=== PATIENT | female | born 1980 | race Caucasian/White ===

== ENCOUNTER 2019-02-09 11:24 | Observation (INO) ==
[2019-02-09] MEDS ORDERED: Naloxone 0.4 MG/ML INJ IVP ONE (11:30)
[2019-02-09] MEDS ORDERED: 0.9 % Sodium Chloride 1,000 ML IVC ONE (11:32)
--- NOTE | 2019-02-09 11:40 | Emergency Department Note ---
Disposition Clinical Impression: Polysubstance abuse Altered mental status Qualifiers: Altered mental status type: unspecified Qualified Code(s): R41.82 - Altered mental status, unspecified Disposition: Admitted As Inpatient Condition: Fair Referrals: NONE,PCP [Primary Care Provider] - Forms: ED Satisfaction Letter Time of Disposition: 14:56 Altered Mental Status HPI - General Chief Complaint: ED Altered Mental Status Stated Complaint: unresponsive Time Seen by Provider: 02/09/19 11:30 Source: EMS Mode of arrival: EMS Limitations: altered mental status Nursing Notes Reviewed: Yes Vital Signs Reviewed: Yes - History of Present Illness HPI Narrative: Patient is a 38-year-old female with unknown past medical history. Presented today via EMS due to being found unresponsive in a field. EMS was called by a neighbor who stated that they found her in the field. EMS states that she was unresponsive, breathing 1-2 times a minute. They give the patient 2 doses of intramuscular Narcan and one intranasal. The noted an improvement in respirations but not in mental status. They state that she will answer any questions for them, appears confused. No other history provided. Glucose was in the 200s per EMS. Patient herself is altered, will not answer any review of system questions. Will not answer any other questions or following any commands. When trying to look into the patient's eyes, I asked if she could open her eyes for many and she was squeezing them tightly and yelled "fuck off." She would not follow any other commands for me. - Related Data Home Medications Medication Instructions Recorded Confirmed Oxycodone HCl/Acetaminophen 1 each PO Q4H PRN 01/13/19 01/13/19 [Percocet 5-325 mg Tablet] Previous Rx's Medication Instructions Recorded Naproxen [Naprosyn] 500 mg PO BID #10 tablet 01/13/19 Allergies Allergy/AdvReac Type Severity Reaction Status Date / Time nalbuphine [From Nubain] Allergy See Verified 01/18/17 20:29 Comments Limitations: ROS unobtainable due to patients medical condition Past Medical History - Past Medical History Medical history: Reports: no medical history (unknown) Surgical history: Reports: non-contributory Psychiatric history: Reports: anxiety 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 - Social History Smoking Status: Former smoker Smokeless Tobacco Status: No Alcohol use: Reports: none Drug use: Reports: opiates, marijuana, methamphetamine, IV Drug Use Physical Exam - General Limitations: altered mental status General appearance: other (altered mental status, GCS 12, listless) - Head Head exam: atraumatic, normocephalic, normal inspection, other (no evidence of any basilar skull fracture signs - negative rowell and raccoon sign; abrasion of the forehead with no active bleeding or sign of infeciton) - Eye Eye exam: Present: normal appearance, PERRL, EOMI - ENT ENT exam: normal exam, normal oropharynx, mucous membranes moist - Neck Neck exam: Present: normal inspection, full ROM, trachea midline. Absent: tenderness - Chest Chest inspection: Present: normal inspection, symmetric chest wall rise - Respiratory Respiratory exam: Present: normal lung sounds bilaterally. Absent: respiratory distress, wheezes, stridor, accessory muscle use - Cardiovascular Cardiovascular exam: Present: normal rhythm, tachycardia, normal heart sounds - Abdominal Exam Abdominal exam: Present: soft, Non-Tender, other (bedside FAST negative). Absent: tenderness, distention, guarding, rebound, rigidity - Extremities Exam Extremities exam: Present: full ROM, other (scabbing of the left anterior knee with sutures in place; no bleeding or signs of infection). Absent: tenderness, pedal edema - Back Exam Back exam: Present: normal inspection, full ROM. Absent: tenderness, vertebral tenderness - Neurological Exam Neurological exam: Present: other (listless, will not follow commands) - Expanded Neurological Exam Coma Scale Eye Opening: To Voice Coma Scale Motor Response: Localizes to Pain Coma Scale Verbal Response: Confused Coma Scale Total: 12 - Skin Skin exam: Present: warm, dry, intact, normal color Course Course Narrative: Patient initially had a pulse ox reading of 85%. However, this was not a good waveform. She was placed on a nonrebreather. Weight. She has a GCS of 12. ATLS protocol was performed in case this was an unknown trauma. Airway was intact, equal bilateral breath sounds, distal pulses intact. No obvious injury or crepitus to the chest, no tenderness to palpation or obvious lesions of the abdomen or pelvis. Patient was disrobed. 2 plastic baggies were found in the underwear containing a white substance concerning for illicit drugs. Security was called and this was given to security. Bedside FAST exam was negative. No obvious step-offs or deformities of the back. Patient was placed in a c-collar on presentation. Currently concern for likely drug overdose. However, still need to assess for other etiologies of altered mental status. CT the head, cervical spine performed along with chest x-ray and pelvis x-ray. We will also obtain basic blood work, troponin, TSH, VBG, urine drug screen, urinalysis, ethanol level. Will start 1L NS bolus. Gave an additional 2mg Narcan IV with little to no response. 12:44 patient has been removed to a regular room. Her chest x-ray negative. Pelvis x-ray negative for any acute processes. CT the head and cervical spine is pending. So far, mild anemia but no other major concerning findings on labs. Currently pending a carboxyhemoglobin, VBG, lactic acid, urinalysis and urine drug screen. Patient was reassessed currently and she still remains a GCS of 12. She is able to be woken with a sternal rub and will curse but will not answer any other questions or follow any other commands. She is now on room air and satting 90%. Blood pressure remained stable at this time was systolic in the low 100s. 12:46 CT head and cervical spine negative. Currently pending the above stated labs. 14:29 Labs back, there was a delay due to the patient being a hard stick for external labs. VBG shows a very mild acidosis. Also very mild elevation in CO level. The patient is a smoker, this would explain the very mild elevation in carboxyhemoglobin. Not concerning for any carbon monoxide poisoning at this time. Urine drug screen is pending. Urinalysis negative for UTI. We will proceed with admission at this time. No change in her physical exam at this time. Chest X-Ray 02/09/19 11:30 IMPRESSION: No acute process. D/ / Praveen Aaron MD / Praveen Aaron MD Interpreting Provider: Praveen Aaron MD Cervical Spine CT 02/09/19 11:31 IMPRESSION: No acute abnormality of the cervical spine. No acute intracranial abnormality. D/ / Luiz Goncalves MD / Luiz Goncalves MD Interpreting Provider: Luiz Goncalves MD Head CT 02/09/19 11:31 IMPRESSION: No acute abnormality of the cervical spine. No acute intracranial abnormality. D/ / Luiz Goncalves MD / Luiz Goncalves MD Interpreting Provider: Luiz Goncalves MD Pelvis X-Ray 02/09/19 11:32 IMPRESSION: Mild degenerative changes, as above. D/ / Arslan Dial MD / Arslan Dial MD Interpreting Provider: Arslan Dial MD Chest X-Ray 02/09/19 11:30 IMPRESSION: No acute process. D/ / Praveen Aaron MD / Praveen Aaron MD Interpreting Provider: Praveen Aaron MD Pelvis X-Ray 02/09/19 11:32 IMPRESSION: Mild degenerative changes, as above. D/ / Arslan Dial MD / Arslan Dial MD Interpreting Provider: Arslan Dial MD Vital Signs Temperature 97.6 F 02/09/19 11:28 Pulse Rate 108 02/09/19 11:28 Respiratory Rate 16 02/09/19 11:28 Blood Pressure 92/64 02/09/19 11:28 O2 Sat by Pulse Oximetry 95 02/09/19 11:28 Temperature 98.2 F 02/09/19 11:53 Pulse Rate 92 02/09/19 14:28 Respiratory Rate 15 02/09/19 14:28 Blood Pressure 97/71 02/09/19 14:28 O2 Sat by Pulse Oximetry 96 02/09/19 14:28 Oxygen Delivery Oxygen Delivery Room Air Altered Mental Status - [facility] Narrative Medical decision making narrative: Patient initially had a pulse ox reading of 85%. However, this was not a good waveform. She was placed on a nonrebreather. Weight. She has a GCS of 12. ATLS protocol was performed in case this was an unknown trauma. Airway was intact, equal bilateral breath sounds, distal pulses intact. No obvious injury or crepitus to the chest, no tenderness to palpation or obvious lesions of the abdomen or pelvis. Patient was disrobed. 2 plastic baggies were found in the underwear containing a white substance concerning for illicit drugs. Security was called and this was given to security. Bedside FAST exam was negative. No obvious step-offs or deformities of the back. Patient was placed in a c-collar on presentation. Currently concern for likely drug overdose. However, still need to assess for other etiologies of altered mental status. CT the head, cervical spine performed along with chest x-ray and pelvis x-ray. We will also obtain basic blood work, troponin, TSH, VBG, urine drug screen, urinalysis, ethanol level. Will start 1L NS bolus. Gave an additional 2mg Narcan IV with little to no response. 12:44 patient has been removed to a regular room. Her chest x-ray negative. Pelvis x-ray negative for any acute processes. CT the head and cervical spine is pending. So far, mild anemia but no other major concerning findings on labs. Currently pending a carboxyhemoglobin, VBG, lactic acid, urinalysis and urine drug screen. Patient was reassessed currently and she still remains a GCS of 12. She is able to be woken with a sternal rub and will curse but will not answer any other questions or follow any other commands. She is now on room air and satting 90%. Blood pressure remained stable at this time was systolic in the low 100s. 12:46 CT head and cervical spine negative. Currently pending the above stated labs. 14:29 Labs back, there was a delay due to the patient being a hard stick for external labs. VBG shows a very mild acidosis. Also very mild elevation in CO level. The patient is a smoker, this would explain the very mild elevation in carboxyhemoglobin. Not concerning for any carbon monoxide poisoning at this time. Urine drug screen is pending. Urinalysis negative for UTI. We will proceed with admission at this time. No change in her physical exam at this time still refusing to answer questions, protecting airway with 100% sat on room air and normal RR. 14:50 UA positive for benzo, amphetamine, opiates, PCP, marijuana. Concern for polysubstance abuse contributing to her status. 14:53 Dr. De Luna accepts. Will admit to with cardioresp monitoring. - Medical Records Medical records reviewed: Yes I reviewed the patient's medical records. - Lab Data Lab results reviewed: Yes I reviewed the patient's lab results. Result diagrams: 02/09/19 11:34 02/09/19 11:34 Lab Results 02/09/19 02/09/19 02/09/19 Range/Units 11:34 11:34 11:34 WBC 15.3 H (4.3-11.1) K/mcL RBC 3.97 (3.82-4.97) M/mcL Hgb 10.9 L (11.5-15.4) g/dL Hct 36.4 (35.3-44.9) % MCV 91.7 (83.0-100.0) fL MCH 27.5 L (28.0-33.3) pg MCHC 29.9 L (31.6-35.5) g/dL RDW 13.3 (11.5-14.5) % Plt Count 506 H (140-400) K/mcL MPV 8.7 L (9.4-12.4) fL Immature Gran % 0.8 (0-4) % Seg Neutrophils % 87.7 % Lymphocytes % 7.8 % Monocytes % 3.0 % Eosinophils % 0.4 % Basophils % 0.3 % Neutrophils # 13.4 H (1.6-8.9) K/mcL Lymphocytes # 1.2 (0.6-4.6) K/mcL Monocytes # 0.5 (0.0-1.3) K/mcL Eosinophils # 0.1 (0.0-0.6) K/mcL Basophils # 0.1 (0.0-0.2) K/mcL PT 11.9 (9.4-12.1) Seconds INR 1.1 APTT 29.4 (26.0-36.0) Seconds VBG pH (7.32-7.42) pH Units VBG pCO2 (41-51) mmHg VBG pO2 (25-50) mmHg VBG HCO3 (21-27) mEq/L Carboxyhemoglobin (0-5) % Sodium 142 (136-145) mEq/L Potassium 4.3 (3.5-5.1) mEq/L Chloride 104 (98-107) mEq/L Carbon Dioxide 26 (23-29) mEq/L BUN 12 (6-20) mg/dL Creatinine 1.00 (0.60-1.20) mg/dL Est GFR ( Amer) > 60 (> 60) Est GFR (Non-Af Amer) > 60 (> 60) BUN/Creatinine Ratio 12 (6-26) Glucose 176 H (70-105) mg/dL Calculated Osmolality 298 (280-300) Lactic Acid (0.5-2.2) mmol/L Calcium 8.7 (8.6-10.3) mg/dL Total Bilirubin 0.3 (0.3-1.0) mg/dL Direct Bilirubin 0.0 (0.0-0.2) mg/dL Indirect Bilirubin 0.3 (0.0-1.2) mg/dL AST 30 (13-39) Units/L ALT 15 (7-52) Units/L Alkaline Phosphatase 72 (34-104) Units/L Troponin I < 0.03 (< 0.04) ng/mL Serum Total Protein 6.4 (6.4-8.9) g/dL Albumin 3.6 (3.5-5.7) g/dL Globulin 2.8 (2.4-3.5) g/dL Albumin/Globulin Ratio 1.3 (1.1-2.2) Beta-Hydroxybutyric Acd (0.02-0.27) mmol/L TSH 4.327 (0.340-5.600) mcIU/mL Urine Color (Yellow) Urine Clarity (Clear) Urine pH (5.0-8.0) pH Units Ur Specific [place] (1.010-1.025) Urine Protein (Neg-Trace) mg/dL Urine Glucose (UA) (Normal) mg/dL Urine Ketones (Negative) mg/dL Urine Blood (Negative) Urine Nitrite (Negative) Urine Bilirubin (Negative) Urine Urobilinogen (Normal) mg/dL Ur Leukocyte Esterase (Negative) Urine Microscopic RBC (0-3) per hpf Urine Microscopic WBC (0-3) per hpf Ur Squamous Epith Cells (None-Few) per lpf Ur Renal Epithelial Cell (None-Few) per hpf Urine Bacteria (None-Few) per hpf Hyaline Casts (None-Few) per lpf Ur Culture Indicated? (NO) Urine Opiates Screen (Vfxjwe=233) ng/mL Ur Barbiturates Screen (Nazhjk=636) ng/mL Ur Phencyclidine Scrn (Cutoff=25) ng/mL Ur Amphetamines Screen (Doaxgh=5721) ng/mL U Benzodiazepines Scrn (Douvgb=429) ng/mL Urine Cocaine Screen (Cutoff= 300) ng/mL U Marijuana (THC) Screen (Cutoff = 50) ng/mL Ur Drug Screen Interp Ethyl Alcohol < 10 (Less than 10) mg/dL 02/09/19 02/09/19 02/09/19 Range/Units 12:51 12:51 13:20 WBC (4.3-11.1) K/mcL RBC (3.82-4.97) M/mcL Hgb (11.5-15.4) g/dL Hct (35.3-44.9) % MCV (83.0-100.0) fL MCH (28.0-33.3) pg MCHC (31.6-35.5) g/dL RDW (11.5-14.5) % Plt Count (140-400) K/mcL MPV (9.4-12.4) fL Immature Gran % (0-4) % Seg Neutrophils % % Lymphocytes % % Monocytes % % Eosinophils % % Basophils % % Neutrophils # (1.6-8.9) K/mcL Lymphocytes # (0.6-4.6) K/mcL Monocytes # (0.0-1.3) K/mcL Eosinophils # (0.0-0.6) K/mcL Basophils # (0.0-0.2) K/mcL PT (9.4-12.1) Seconds INR APTT (26.0-36.0) Seconds VBG pH (7.32-7.42) pH Units VBG pCO2 (41-51) mmHg VBG pO2 (25-50) mmHg VBG HCO3 (21-27) mEq/L Carboxyhemoglobin (0-5) % Sodium (136-145) mEq/L Potassium (3.5-5.1) mEq/L Chloride (98-107) mEq/L Carbon Dioxide (23-29) mEq/L BUN (6-20) mg/dL Creatinine (0.60-1.20) mg/dL Est GFR ( Amer) (> 60) Est GFR (Non-Af Amer) (> 60) BUN/Creatinine Ratio (6-26) Glucose (70-105) mg/dL Calculated Osmolality (280-300) Lactic Acid (0.5-2.2) mmol/L Calcium (8.6-10.3) mg/dL Total Bilirubin (0.3-1.0) mg/dL Direct Bilirubin (0.0-0.2) mg/dL Indirect Bilirubin (0.0-1.2) mg/dL AST (13-39) Units/L ALT (7-52) Units/L Alkaline Phosphatase (34-104) Units/L Troponin I (< 0.04) ng/mL Serum Total Protein (6.4-8.9) g/dL Albumin (3.5-5.7) g/dL Globulin (2.4-3.5) g/dL Albumin/Globulin Ratio (1.1-2.2) Beta-Hydroxybutyric Acd 0.33 H (0.02-0.27) mmol/L TSH (0.340-5.600) mcIU/mL Urine Color Yellow (Yellow) Urine Clarity Cloudy A (Clear) Urine pH 5.5 (5.0-8.0) pH Units Ur Specific [place] 1.018 (1.010-1.025) Urine Protein 30 H (Neg-Trace) mg/dL Urine Glucose (UA) Normal (Normal) mg/dL Urine Ketones Negative (Negative) mg/dL Urine Blood Trace H (Negative) Urine Nitrite Negative (Negative) Urine Bilirubin Negative (Negative) Urine Urobilinogen Normal (Normal) mg/dL Ur Leukocyte Esterase Trace H (Negative) Urine Microscopic RBC 0-3 (0-3) per hpf Urine Microscopic WBC 5-15 H (0-3) per hpf Ur Squamous Epith Cells Many H (None-Few) per lpf Ur Renal Epithelial Cell Few (None-Few) per hpf Urine Bacteria Many H (None-Few) per hpf Hyaline Casts See Below (None-Few) per lpf Ur Culture Indicated? NO. A (NO) Urine Opiates Screen Positive H (Wbdjkn=017) ng/mL Ur Barbiturates Screen Negative (Lqyvim=823) ng/mL Ur Phencyclidine Scrn Positive H (Cutoff=25) ng/mL Ur Amphetamines Screen Positive H (Dooduz=5094) ng/mL U Benzodiazepines Scrn Positive H (Lumtlj=770) ng/mL Urine Cocaine Screen Negative (Cutoff= 300) ng/mL U Marijuana (THC) Screen Positive H (Cutoff = 50) ng/mL Ur Drug Screen Interp See Below Ethyl Alcohol (Less than 10) mg/dL 02/09/19 02/09/19 02/09/19 Range/Units 13:20 13:20 13:39 WBC (4.3-11.1) K/mcL RBC (3.82-4.97) M/mcL Hgb (11.5-15.4) g/dL Hct (35.3-44.9) % MCV (83.0-100.0) fL MCH (28.0-33.3) pg MCHC (31.6-35.5) g/dL RDW (11.5-14.5) % Plt Count (140-400) K/mcL MPV (9.4-12.4) fL Immature Gran % (0-4) % Seg Neutrophils % % Lymphocytes % % Monocytes % % Eosinophils % % Basophils % % Neutrophils # (1.6-8.9) K/mcL Lymphocytes # (0.6-4.6) K/mcL Monocytes # (0.0-1.3) K/mcL Eosinophils # (0.0-0.6) K/mcL Basophils # (0.0-0.2) K/mcL PT (9.4-12.1) Seconds INR APTT (26.0-36.0) Seconds VBG pH 7.29 L (7.32-7.42) pH Units VBG pCO2 56 H (41-51) mmHg VBG pO2 183 H (25-50) mmHg VBG HCO3 27 (21-27) mEq/L Carboxyhemoglobin 6.7 H (0-5) % Sodium (136-145) mEq/L Potassium (3.5-5.1) mEq/L Chloride (98-107) mEq/L Carbon Dioxide (23-29) mEq/L BUN (6-20) mg/dL Creatinine (0.60-1.20) mg/dL Est GFR ( Amer) (> 60) Est GFR (Non-Af Amer) (> 60) BUN/Creatinine Ratio (6-26) Glucose (70-105) mg/dL Calculated Osmolality (280-300) Lactic Acid 3.0 H (0.5-2.2) mmol/L Calcium (8.6-10.3) mg/dL Total Bilirubin (0.3-1.0) mg/dL Direct Bilirubin (0.0-0.2) mg/dL Indirect Bilirubin (0.0-1.2) mg/dL AST (13-39) Units/L ALT (7-52) Units/L Alkaline Phosphatase (34-104) Units/L Troponin I (< 0.04) ng/mL Serum Total Protein (6.4-8.9) g/dL Albumin (3.5-5.7) g/dL Globulin (2.4-3.5) g/dL Albumin/Globulin Ratio (1.1-2.2) Beta-Hydroxybutyric Acd (0.02-0.27) mmol/L TSH (0.340-5.600) mcIU/mL Urine Color (Yellow) Urine Clarity (Clear) Urine pH (5.0-8.0) pH Units Ur Specific [place] (1.010-1.025) Urine Protein (Neg-Trace) mg/dL Urine Glucose (UA) (Normal) mg/dL Urine Ketones (Negative) mg/dL Urine Blood (Negative) Urine Nitrite (Negative) Urine Bilirubin (Negative) Urine Urobilinogen (Normal) mg/dL Ur Leukocyte Esterase (Negative) Urine Microscopic RBC (0-3) per hpf Urine Microscopic WBC (0-3) per hpf Ur Squamous Epith Cells (None-Few) per lpf Ur Renal Epithelial Cell (None-Few) per hpf Urine Bacteria (None-Few) per hpf Hyaline Casts (None-Few) per lpf Ur Culture Indicated? (NO) Urine Opiates Screen (Ykljvl=286) ng/mL Ur Barbiturates Screen (Hbfrre=818) ng/mL Ur Phencyclidine Scrn (Cutoff=25) ng/mL Ur Amphetamines Screen (Xqjikg=8024) ng/mL U Benzodiazepines Scrn (Mxokgz=246) ng/mL Urine Cocaine Screen (Cutoff= 300) ng/mL U Marijuana (THC) Screen (Cutoff = 50) ng/mL Ur Drug Screen Interp Ethyl Alcohol (Less than 10) mg/dL - Radiology Data Radiology results reviewed: Yes I reviewed the patient's radiology results. - EKG Data EKG attestation: Yes I reviewed and interpreted this EKG. EKG results narrative: 02/09/2019 at 11:44. Sinus tachycardia. Heart rate 106. Here 145. QRS 100. QTC 476. Normal axis. No acute ST elevation or depression. TPA Checklist - LKW: 3-4.5 hrs Add. Warnings/Precautions Patient/family understanding: The patient/family members have been counseled and understood the risk, benefit, and alternatives of treatment. [email or web address] - Karen Situation: Demographics, MOA Background: Presenting Complaint, Relevant PMH, Meds, & Allergies Assessment: Vital Signs, Course and respsone to treatment, Exam Concerns, Patient/Family Expectation, Pertinant Lab Results Recommendation: Recommendation based on pending studies, treatments, or consults S.B.Jose Eduardo Report Given to: Dr. Paul Jones Repor Time: 14:56
[2019-02-09 11:46] LABS: Basophils # 0.1 K/mcL (0.0-0.2); Basophils % 0.3 %; Eosinophils # 0.1 K/mcL (0.0-0.6); Eosinophils % 0.4 %; Hematocrit 36.4 % (35.3-44.9); Hemoglobin 10.9 g/dL (11.5-15.4); Immature Granulocytes % 0.8 % (0-4); Lymphocytes # 1.2 K/mcL (0.6-4.6); Lymphocytes % 7.8 %; Mean Corpuscular HGB Conc 29.9 g/dL (31.6-35.5); Mean Corpuscular Hemoglobin 27.5 pg (28.0-33.3); Mean Corpuscular Volume 91.7 fL (83.0-100.0); Mean Platelet Volume 8.7 fL (9.4-12.4); Monocytes # 0.5 K/mcL (0.0-1.3); Neutrophils # 13.4 K/mcL (1.6-8.9); Platelet Count 506 K/mcL (140-400); Red Blood Count 3.97 M/mcL (3.82-4.97); Red Cell Distribution Width 13.3 % (11.5-14.5); Segmented Neutrophils % 87.7 %
[2019-02-09 12:00] LABS: INR 1.1; Prothrombin Time 11.9 Seconds (9.4-12.1)
[2019-02-09 12:02] LABS: Activated Partial Thrombo Time 29.4 Seconds (26.0-36.0)
--- NOTE | 2019-02-09 12:16 | Emergency Department Note ---
Disposition Clinical Impression: Polysubstance abuse Altered mental status Qualifiers: Altered mental status type: unspecified Qualified Code(s): R41.82 - Altered mental status, unspecified Disposition: Admitted As Inpatient Condition: Fair Altered Mental Status HPI - General Chief Complaint: ED Altered Mental Status Stated Complaint: unresponsive Time Seen by Provider: 02/09/19 11:30 Source: EMS Mode of arrival: EMS Limitations: altered mental status - Related Data Home Medications Medication Instructions Recorded Confirmed Oxycodone HCl/Acetaminophen 1 each PO Q4H PRN 01/13/19 01/13/19 [Percocet 5-325 mg Tablet] Previous Rx's Medication Instructions Recorded Naproxen [Naprosyn] 500 mg PO BID #10 tablet 01/13/19 Allergies Allergy/AdvReac Type Severity Reaction Status Date / Time nalbuphine [From Nubain] Allergy See Verified 01/18/17 20:29 Comments Past Medical History - Past Medical History Medical history: Reports: no medical history Surgical history: Reports: non-contributory Psychiatric history: Reports: anxiety 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 - Social History Smoking Status: Former smoker Smokeless Tobacco Status: No Alcohol use: Reports: none Drug use: Reports: opiates, marijuana, methamphetamine, IV Drug Use Physical Exam - General Limitations: altered mental status Course Vital Signs Temperature 97.6 F 02/09/19 11:28 Pulse Rate 108 02/09/19 11:28 Respiratory Rate 16 02/09/19 11:28 Blood Pressure 92/64 02/09/19 11:28 O2 Sat by Pulse Oximetry 95 02/09/19 11:28 Temperature 98.4 F 02/09/19 20:01 Pulse Rate 91 02/09/19 20:01 Respiratory Rate 11 02/09/19 20:01 Blood Pressure 86/62 02/09/19 20:01 O2 Sat by Pulse Oximetry 92 02/09/19 20:01 Oxygen Delivery Oxygen Delivery Room Air Altered Mental Status - Lab Data Result diagrams: 02/09/19 11:34 02/09/19 11:34 Lab Results 02/09/19 02/09/19 02/09/19 Range/Units 11:34 11:34 11:34 WBC 15.3 H (4.3-11.1) K/mcL RBC 3.97 (3.82-4.97) M/mcL Hgb 10.9 L (11.5-15.4) g/dL Hct 36.4 (35.3-44.9) % MCV 91.7 (83.0-100.0) fL MCH 27.5 L (28.0-33.3) pg MCHC 29.9 L (31.6-35.5) g/dL RDW 13.3 (11.5-14.5) % Plt Count 506 H (140-400) K/mcL MPV 8.7 L (9.4-12.4) fL Immature Gran % 0.8 (0-4) % Seg Neutrophils % 87.7 % Lymphocytes % 7.8 % Monocytes % 3.0 % Eosinophils % 0.4 % Basophils % 0.3 % Neutrophils # 13.4 H (1.6-8.9) K/mcL Lymphocytes # 1.2 (0.6-4.6) K/mcL Monocytes # 0.5 (0.0-1.3) K/mcL Eosinophils # 0.1 (0.0-0.6) K/mcL Basophils # 0.1 (0.0-0.2) K/mcL PT 11.9 (9.4-12.1) Seconds INR 1.1 APTT 29.4 (26.0-36.0) Seconds VBG pH (7.32-7.42) pH Units VBG pCO2 (41-51) mmHg VBG pO2 (25-50) mmHg VBG HCO3 (21-27) mEq/L Carboxyhemoglobin (0-5) % Sodium 142 (136-145) mEq/L Potassium 4.3 (3.5-5.1) mEq/L Chloride 104 (98-107) mEq/L Carbon Dioxide 26 (23-29) mEq/L BUN 12 (6-20) mg/dL Creatinine 1.00 (0.60-1.20) mg/dL Est GFR ( Amer) > 60 (> 60) Est GFR (Non-Af Amer) > 60 (> 60) BUN/Creatinine Ratio 12 (6-26) Glucose 176 H (70-105) mg/dL Calculated Osmolality 298 (280-300) Lactic Acid (0.5-2.2) mmol/L Calcium 8.7 (8.6-10.3) mg/dL Phosphorus 6.5 H (2.7-4.5) mg/dL Magnesium 2.3 (1.6-2.6) mg/dL Total Bilirubin 0.3 (0.3-1.0) mg/dL Direct Bilirubin 0.0 (0.0-0.2) mg/dL Indirect Bilirubin 0.3 (0.0-1.2) mg/dL AST 30 (13-39) Units/L ALT 15 (7-52) Units/L Alkaline Phosphatase 72 (34-104) Units/L Troponin I < 0.03 (< 0.04) ng/mL Serum Total Protein 6.4 (6.4-8.9) g/dL Albumin 3.6 (3.5-5.7) g/dL Globulin 2.8 (2.4-3.5) g/dL Albumin/Globulin Ratio 1.3 (1.1-2.2) Beta-Hydroxybutyric Acd (0.02-0.27) mmol/L TSH 4.327 (0.340-5.600) mcIU/mL Urine Color (Yellow) Urine Clarity (Clear) Urine pH (5.0-8.0) pH Units Ur Specific [place] (1.010-1.025) Urine Protein (Neg-Trace) mg/dL Urine Glucose (UA) (Normal) mg/dL Urine Ketones (Negative) mg/dL Urine Blood (Negative) Urine Nitrite (Negative) Urine Bilirubin (Negative) Urine Urobilinogen (Normal) mg/dL Ur Leukocyte Esterase (Negative) Urine Microscopic RBC (0-3) per hpf Urine Microscopic WBC (0-3) per hpf Ur Squamous Epith Cells (None-Few) per lpf Ur Renal Epithelial Cell (None-Few) per hpf Urine Bacteria (None-Few) per hpf Hyaline Casts (None-Few) per lpf Ur Culture Indicated? (NO) Urine Opiates Screen (Qrazzy=004) ng/mL Ur Barbiturates Screen (Uinizf=894) ng/mL Ur Phencyclidine Scrn (Cutoff=25) ng/mL Ur Amphetamines Screen (Vmlbkv=5665) ng/mL U Benzodiazepines Scrn (Tbflzk=480) ng/mL Urine Cocaine Screen (Cutoff= 300) ng/mL U Marijuana (THC) Screen (Cutoff = 50) ng/mL Ur Drug Screen Interp Ethyl Alcohol < 10 (Less than 10) mg/dL 02/09/19 02/09/19 02/09/19 Range/Units 12:51 12:51 13:20 WBC (4.3-11.1) K/mcL RBC (3.82-4.97) M/mcL Hgb (11.5-15.4) g/dL Hct (35.3-44.9) % MCV (83.0-100.0) fL MCH (28.0-33.3) pg MCHC (31.6-35.5) g/dL RDW (11.5-14.5) % Plt Count (140-400) K/mcL MPV (9.4-12.4) fL Immature Gran % (0-4) % Seg Neutrophils % % Lymphocytes % % Monocytes % % Eosinophils % % Basophils % % Neutrophils # (1.6-8.9) K/mcL Lymphocytes # (0.6-4.6) K/mcL Monocytes # (0.0-1.3) K/mcL Eosinophils # (0.0-0.6) K/mcL Basophils # (0.0-0.2) K/mcL PT (9.4-12.1) Seconds INR APTT (26.0-36.0) Seconds VBG pH (7.32-7.42) pH Units VBG pCO2 (41-51) mmHg VBG pO2 (25-50) mmHg VBG HCO3 (21-27) mEq/L Carboxyhemoglobin (0-5) % Sodium (136-145) mEq/L Potassium (3.5-5.1) mEq/L Chloride (98-107) mEq/L Carbon Dioxide (23-29) mEq/L BUN (6-20) mg/dL Creatinine (0.60-1.20) mg/dL Est GFR ( Amer) (> 60) Est GFR (Non-Af Amer) (> 60) BUN/Creatinine Ratio (6-26) Glucose (70-105) mg/dL Calculated Osmolality (280-300) Lactic Acid (0.5-2.2) mmol/L Calcium (8.6-10.3) mg/dL Phosphorus (2.7-4.5) mg/dL Magnesium (1.6-2.6) mg/dL Total Bilirubin (0.3-1.0) mg/dL Direct Bilirubin (0.0-0.2) mg/dL Indirect Bilirubin (0.0-1.2) mg/dL AST (13-39) Units/L ALT (7-52) Units/L Alkaline Phosphatase (34-104) Units/L Troponin I (< 0.04) ng/mL Serum Total Protein (6.4-8.9) g/dL Albumin (3.5-5.7) g/dL Globulin (2.4-3.5) g/dL Albumin/Globulin Ratio (1.1-2.2) Beta-Hydroxybutyric Acd 0.33 H (0.02-0.27) mmol/L TSH (0.340-5.600) mcIU/mL Urine Color Yellow (Yellow) Urine Clarity Cloudy A (Clear) Urine pH 5.5 (5.0-8.0) pH Units Ur Specific [place] 1.018 (1.010-1.025) Urine Protein 30 H (Neg-Trace) mg/dL Urine Glucose (UA) Normal (Normal) mg/dL Urine Ketones Negative (Negative) mg/dL Urine Blood Trace H (Negative) Urine Nitrite Negative (Negative) Urine Bilirubin Negative (Negative) Urine Urobilinogen Normal (Normal) mg/dL Ur Leukocyte Esterase Trace H (Negative) Urine Microscopic RBC 0-3 (0-3) per hpf Urine Microscopic WBC 5-15 H (0-3) per hpf Ur Squamous Epith Cells Many H (None-Few) per lpf Ur Renal Epithelial Cell Few (None-Few) per hpf Urine Bacteria Many H (None-Few) per hpf Hyaline Casts See Below (None-Few) per lpf Ur Culture Indicated? NO. A (NO) Urine Opiates Screen Positive H (Nduupx=233) ng/mL Ur Barbiturates Screen Negative (Froubi=742) ng/mL Ur Phencyclidine Scrn Positive H (Cutoff=25) ng/mL Ur Amphetamines Screen Positive H (Scakqt=8853) ng/mL U Benzodiazepines Scrn Positive H (Qmtqlf=750) ng/mL Urine Cocaine Screen Negative (Cutoff= 300) ng/mL U Marijuana (THC) Screen Positive H (Cutoff = 50) ng/mL Ur Drug Screen Interp See Below Ethyl Alcohol (Less than 10) mg/dL 02/09/19 02/09/19 02/09/19 Range/Units 13:20 13:20 13:39 WBC (4.3-11.1) K/mcL RBC (3.82-4.97) M/mcL Hgb (11.5-15.4) g/dL Hct (35.3-44.9) % MCV (83.0-100.0) fL MCH (28.0-33.3) pg MCHC (31.6-35.5) g/dL RDW (11.5-14.5) % Plt Count (140-400) K/mcL MPV (9.4-12.4) fL Immature Gran % (0-4) % Seg Neutrophils % % Lymphocytes % % Monocytes % % Eosinophils % % Basophils % % Neutrophils # (1.6-8.9) K/mcL Lymphocytes # (0.6-4.6) K/mcL Monocytes # (0.0-1.3) K/mcL Eosinophils # (0.0-0.6) K/mcL Basophils # (0.0-0.2) K/mcL PT (9.4-12.1) Seconds INR APTT (26.0-36.0) Seconds VBG pH 7.29 L (7.32-7.42) pH Units VBG pCO2 56 H (41-51) mmHg VBG pO2 183 H (25-50) mmHg VBG HCO3 27 (21-27) mEq/L Carboxyhemoglobin 6.7 H (0-5) % Sodium (136-145) mEq/L Potassium (3.5-5.1) mEq/L Chloride (98-107) mEq/L Carbon Dioxide (23-29) mEq/L BUN (6-20) mg/dL Creatinine (0.60-1.20) mg/dL Est GFR ( Amer) (> 60) Est GFR (Non-Af Amer) (> 60) BUN/Creatinine Ratio (6-26) Glucose (70-105) mg/dL Calculated Osmolality (280-300) Lactic Acid 3.0 H (0.5-2.2) mmol/L Calcium (8.6-10.3) mg/dL Phosphorus (2.7-4.5) mg/dL Magnesium (1.6-2.6) mg/dL Total Bilirubin (0.3-1.0) mg/dL Direct Bilirubin (0.0-0.2) mg/dL Indirect Bilirubin (0.0-1.2) mg/dL AST (13-39) Units/L ALT (7-52) Units/L Alkaline Phosphatase (34-104) Units/L Troponin I (< 0.04) ng/mL Serum Total Protein (6.4-8.9) g/dL Albumin (3.5-5.7) g/dL Globulin (2.4-3.5) g/dL Albumin/Globulin Ratio (1.1-2.2) Beta-Hydroxybutyric Acd (0.02-0.27) mmol/L TSH (0.340-5.600) mcIU/mL Urine Color (Yellow) Urine Clarity (Clear) Urine pH (5.0-8.0) pH Units Ur Specific [place] (1.010-1.025) Urine Protein (Neg-Trace) mg/dL Urine Glucose (UA) (Normal) mg/dL Urine Ketones (Negative) mg/dL Urine Blood (Negative) Urine Nitrite (Negative) Urine Bilirubin (Negative) Urine Urobilinogen (Normal) mg/dL Ur Leukocyte Esterase (Negative) Urine Microscopic RBC (0-3) per hpf Urine Microscopic WBC (0-3) per hpf Ur Squamous Epith Cells (None-Few) per lpf Ur Renal Epithelial Cell (None-Few) per hpf Urine Bacteria (None-Few) per hpf Hyaline Casts (None-Few) per lpf Ur Culture Indicated? (NO) Urine Opiates Screen (Ulxirr=241) ng/mL Ur Barbiturates Screen (Iqommb=589) ng/mL Ur Phencyclidine Scrn (Cutoff=25) ng/mL Ur Amphetamines Screen (Eloxwl=1015) ng/mL U Benzodiazepines Scrn (Gyyhlh=639) ng/mL Urine Cocaine Screen (Cutoff= 300) ng/mL U Marijuana (THC) Screen (Cutoff = 50) ng/mL Ur Drug Screen Interp Ethyl Alcohol (Less than 10) mg/dL TPA Checklist - LKW: 3-4.5 hrs Add. Warnings/Precautions Patient/family understanding: The patient/family members have been counseled and understood the risk, benefit, and alternatives of treatment. Critical Care Time Critical Care Time: Yes Total Critical Care Time: 35 Attestation: Critical care time was exclusive of separately billable procedures and treating other patients. Critical care was necessary to treat or prevent imminent or life-threatening deterioration. Critical care was time spent personally by me on the following activities: development of treatment plan with patient and/or surrogate as well as nursing, discussions with consultants, evaluation of patient's response to treatment, examination of patient, obtaining history from patient or surrogate, ordering and performing treatments and interventions, ordering and review of laboratory studies, ordering and review of radiographic studies, pulse oximetry and re-evaluation of patient's condition. Attestation Statement - Attestation Attestation: Resident Attestation: I examined this patient and my medical decision making was reviewed with the Resident Physician. I agree with the documented findings, disposition and treatment plan as described except to the extent set forth below. We independently had [id number] contact with the patient. The patient presents to the emergency department via EMS after being found unresponsive in the field. EMS states the area is known for his drug overdoses. She was found out in the [place]. There was multiple people around. Initial concern for overdose. 2 mg of Narcan had been given. One intranasal and 1 IM. Patient's initial respiratory rate was described as 1- 2/m. Patient did have pulse on arrival. Unknown blood pressure. Upon arrival in the emergency department patient pupils are 3 and reactive. The patient's airway is intact. The patient has gag reflex intact. With sternal rub the patient yelled profanities without slurring or decreased speech. Patient is unable to answer other specific questions. Patient has equal breath sounds bilaterally. Patient's abdomen is soft nontender to palpation. Patient does have previous scabs to the left knee and mendez with a suture that is still in place the left knee. Patient has what appears to be an old abrasion to the forehead. Patient was placed in a c-collar and will undergo trauma scan of the head and neck. Broad workup and differential at this point. Nonspecific workup. Patient did have 2 bags of unknown substance within her underwear contained in the 90s. Presumably drugs. Patient was reevaluated at 1515 and given 2 mg of Narcan. Patient did have some response with this and is now moving all 4 extremities with stimulation. Patient has not had any issues protecting her airway is pulse ox has remained 98% on room air. Respiratory r ate is 16. Patient blood pressure has remained stable with map greater than 65. Patient will need continued close observation. Pt admitted for further observation and management.
[2019-02-09 12:21] LABS: Ethanol < 10 mg/dL (Less than 10); Troponin I < 0.03 ng/mL (< 0.04)
[2019-02-09 12:22] LABS: Alanine Aminotransferase 15 Units/L (7-52); Albumin 3.6 g/dL (3.5-5.7); Albumin/Globulin Ratio 1.3 (1.1-2.2); Alkaline Phosphatase 72 Units/L (34-104); Aspartate Amino Transferase 30 Units/L (13-39); BUN/Creatinine Ratio 12 (6-26); Bilirubin,Indirect 0.3 mg/dL (0.0-1.2); Bilirubin,Total 0.3 mg/dL (0.3-1.0); Blood Urea Nitrogen 12 mg/dL (6-20); Calcium 8.7 mg/dL (8.6-10.3); Carbon Dioxide 26 mEq/L (23-29); Chloride 104 mEq/L (98-107); Globulin 2.8 g/dL (2.4-3.5); Glucose 176 mg/dL (70-105); Osmolality,Calculated 298 (280-300); Potassium 4.3 mEq/L (3.5-5.1); Sodium 142 mEq/L (136-145); Thyroid Stimulating Hormone 4.327 mcIU/mL (0.340-5.600); Total Protein 6.4 g/dL (6.4-8.9); eGFR For Non-African Americans > 60 (> 60)
[2019-02-09 13:42] LABS: VBG HCO3 27 mEq/L (21-27); VBG PCO2 56 mmHg (41-51); VBG PH 7.29 pH Units (7.32-7.42); VBG PO2 183 mmHg (25-50)
[2019-02-09 13:59] LABS: Bilirubin,Urine Negative (Negative); Blood,Urine Trace (Negative); Clarity,Urine Cloudy (Clear); Color,Urine Yellow (Yellow); Glucose,Urine (UA) Normal (Normal); Ketones,Urine Negative (Negative); Leukocyte Esterase,Urine Trace (Negative); Nitrite,Urine Negative (Negative); PH,Urine 5.5 pH Units (5.0-8.0); Protein,Urine 30 mg/dL (Neg-Trace); Specific Gravity,Urine 1.018 (1.010-1.025); Urobilinogen,Urine Normal (Normal)
[2019-02-09 14:01] LABS: Bacteria,Urine Many per hpf (None-Few); Squamous Epithelial Cell,Urine Many per lpf (None-Few)
[2019-02-09 14:16] LABS: RBC,Urine 0-3 per hpf (0-3)
[2019-02-09 14:17] LABS: Renal Epithelial Cells,Urine Few per hpf (None-Few)
[2019-02-09 14:45] LABS: Amphetamine Screen,Urine Positive ng/mL (Cutoff=1000); Barbiturate Screen,Urine Negative ng/mL (Cutoff=200); Benzodiazepines Screen,Urine Positive ng/mL (Cutoff=200); Cannabinoid Screen,Urine Positive ng/mL (Cutoff = 50); Cocaine Screen,Urine Negative ng/mL (Cutoff= 300); Opiate Screen,Urine Positive ng/mL (Cutoff=300); Phencyclidine Screen,Urine Positive ng/mL (Cutoff=25)
[2019-02-09] MEDS ORDERED: Naloxone 0.4 MG/ML INJ IVP PRN ×2 (15:46→16:10)
[2019-02-09] MEDS ORDERED: Ondansetron 4 MG/2 ML VIAL IVP PRN (15:46)
--- NOTE | 2019-02-09 15:52 | Internal Med History&Physical ---
Date of Encounter: 02/09/19 Time of Encounter: 15:36 Internal Medicine - H&P: HPI Chief complaint: unresponsive Admitted From: Emergency Dept Plans for Post Hospital Care: Home History of present illness: Ms. Oshea is a 38 year old female with past medical history of polysubstance abuse. Most history obtained from ED nurse and staff. Pt was apparently found in the fel[place] after her neighbours reported she was missing. When EMS arrived pt still had a pulse. She was gie one dose of Narcan on the filed. In ED she was given another Narcan 2 mg x 2. Per ED staff pt would respond but then she would yell out profanity and fall back to sleep. According to ED staff, 2 bags of meth fell out of pt's underwear. In ED WBC 15.3, Hgb 10.9, plt 506, PT 11.9, INR 1.1. NA 142, K 4.3, BUN 12, Cr 1.00. Lactic acid 3.0. Chest x ray XR/XR chest 1V portable IMPRESSION: No acute process. CT head CT/CT head/brain wo con IMPRESSION: No acute abnormality of the cervical spine. No acute intracranial abnormality. Pelvic x ray XR/XR pelvis AP view IMPRESSION: Mild degenerative changes, as above. CT cervical spine CT/CT cervical spine wo con IMPRESSION: No acute abnormality of the cervical spine. No acute intracranial abnormality. Past Med Surg Social Fam HX - Past Medical History Medical history: no medical history Psychiatric history: anxiety - Past Surgical History Surgical History: non-contributory Additional surgical history: tubal, surgery to left lower leg with rods - Social History Smoking Status: Former smoker Smokeless Tobacco Status: No Alcohol use: none Drug use: opiates, marijuana, methamphetamine, IV Drug Use Internal Medicine - H&P: Meds Naproxen [Naprosyn] 500 mg PO BID #10 tablet 01/13/19 [Rx] Oxycodone HCl/Acetaminophen [Percocet 5-325 mg Tablet] 1 each PO Q4H PRN 01/13/19 [History] Allergy/AdvReac Type Severity Reaction Status Date / Time nalbuphine [From Nubain] Allergy See Verified 01/18/17 20:29 Comments All Systems PM: A 10-system review of systems was performed and is negative for pertinent findings except as documented above in the HPI. - Constitutional Vitals: Temp Pulse Resp BP Pulse Ox 98.2 F 92 15 97/71 96 02/09/19 11:53 02/09/19 14:28 02/09/19 14:28 02/09/19 14:28 02/09/19 14:28 Exam: Pt is snoring and sleeping at this time. - Head Head exam: Present: atraumatic, normocephalic - Eye Eye exam: Present: PERRL, conjuntiva pink, sclera anicteric Pupils: Present: PERRL - Neck Neck exam general surgery: Present: supple, trachea midline. Absent: lymphadenopathy - Respiratory Respiratory exam: Present: CTAB. Absent: accessory muscle use, rales, rhonchi, wheezes - Cardiovascular Cardiovascular exam: Present: RRR, +S1, +S2. Absent: diastolic murmur, gallop, rubs, systolic murmur - GI/Abdominal GI/Abdominal exam: Present: normal bowel sounds, soft, no peritoneal signs. Absent: distended, tenderness - Extremities Exam Extremities exam: Present: warm, radial pulses palpable and symmetrical. Abse nt: calf tenderness, cyanotic, pedal edema - Neurological Exam Neurological exam: Present: CN II-XII intact, oriented X3, no focal deficits. Absent: pronater drift, facial droop, speech deficit - Skin Skin exam: Present: dry, intact Internal Med - H&P Results - Labs CBC & Chem 7: 02/09/19 11:34 02/09/19 11:34 Labs: Short CBC 02/09/19 Range/Units 11:34 WBC 15.3 H (4.3-11.1) K/mcL Hgb 10.9 L (11.5-15.4) g/dL Hct 36.4 (35.3-44.9) % Plt Count 506 H (140-400) K/mcL Neutrophils # 13.4 H (1.6-8.9) K/mcL BMP 02/09/19 11:34 Sodium 142 Potassium 4.3 Chloride 104 Carbon Dioxide 26 BUN 12 Creatinine 1.00 Glucose 176 H Calcium 8.7 Cardiac Enzymes 02/09/19 Range/Units 11:34 Troponin I < 0.03 (< 0.04) ng/mL Liver Function 02/09/19 Range/Units 11:34 Total Bilirubin 0.3 (0.3-1.0) mg/dL Direct Bilirubin 0.0 (0.0-0.2) mg/dL AST 30 (13-39) Units/L ALT 15 (7-52) Units/L Alkaline Phosphatase 72 (34-104) Units/L Albumin 3.6 (3.5-5.7) g/dL Urine 02/09/19 Range/Units 12:51 Urine Color Yellow (Yellow) Urine Clarity Cloudy A (Clear) Urine pH 5.5 (5.0-8.0) pH Units Ur Specific [place] 1.018 (1.010-1.025) Urine Protein 30 H (Neg-Trace) mg/dL Urine Glucose (UA) Normal (Normal) mg/dL - ABG Interpretation ABG results: 02/09/19 13:39 VBG pH 7.29 L VBG pCO2 56 H VBG pO2 183 H VBG HCO3 27 - Impressions ITS Impressions Chest X-Ray 02/09/19 11:30 IMPRESSION: No acute process. D/ / Praveen Aaron MD / Praveen Aaron MD Interpreting Provider: Praveen Aaron MD Cervical Spine CT 02/09/19 11:31 IMPRESSION: No acute abnormality of the cervical spine. No acute intracranial abnormality. D/ / Luiz Goncalves MD / Luiz Goncalves MD Interpreting Provider: Luiz Goncalves MD Head CT 02/09/19 11:31 IMPRESSION: No acute abnormality of the cervical spine. No acute intracranial abnormality. D/ / Luiz Goncalves MD / Luiz Goncalves MD Interpreting Provider: Luiz Goncalves MD Pelvis X-Ray 02/09/19 11:32 IMPRESSION: Mild degenerative changes, as above. D/ / Arslan Dial MD / Arslan Dial MD Interpreting Provider: Arslan Dial MD - Assessment and Plan (1) Altered mental status Current Visit: Yes Status: Acute Assessment and plan: Due to drug OD. Will monitor on telemetry. Narcan PRN. Flumazenil PRN. Will obtain baseline ABG. Qualifiers: Altered mental status type: unspecified Qualified Code(s): R41.82 - Altered mental status, unspecified (2) Polysubstance abuse Current Visit: Yes Status: Acute Assessment and plan: Pt's urine drug screen positive for opiates, PCP, amphetamines, benzodiazepin es,THC. ETOH < 10. (3) Leukocytosis Current Visit: Yes Status: Acute Assessment and plan: Will check CBC in am. Qualifiers: Qualified Code(s): D72.829 - Elevated white blood cell count, unspecified (4) Edema Current Visit: Yes Status: Acute Assessment and plan: Lwft LE edema. Checking doppler LLE Qualifiers: Qualified Code(s): R60.9 - Edema, unspecified - Time Spent With Patient Total time spent is greater than 50% in coordination of care (as documented) at patient's floor/unit and/or counseling patient: 25 - 35 minutes
[2019-02-09 16:19] LABS: Magnesium 2.3 mg/dL (1.6-2.6); Phosphorous 6.5 mg/dL (2.7-4.5)
[2019-02-09 16:38] LABS: ABG Base Excess 4 mEq/L (-2 to 3); ABG HCO3 31 mEq/L (21-27); ABG Oxygen Saturation 93 % (95-98); ABG PCO2 54 mmHg (35-45); ABG PH 7.36 pH Units (7.32-7.45); ABG PO2 72 mmHg (85-104); ABG TCO2 32 mEq/L (20-26)
[2019-02-09] MEDS: 0.9 % Sodium Chloride 1,000 ML IVC SCH (17:45)
--- NOTE | 2019-02-09 20:38 | Electrocardiograph Report ---
[facility] Test Date: 2019-02-09 Pat Name: Barb Oshea Department: [id number] Room: 2N04 Gender: F Emergency Physician: : [id number] Requested By: Jack Glass Order Number: [id number] Reading MD: Hamlet Amaya Measurements Intervals [place] Rate: 106 P: 78 ND: 145 QRS: 67 QRSD: 100 T: 85 QT: 358 QTc: 476 Interpretive Statements Sinus tachycardia Paired ventricular premature complexes Aberrant conduction of SV complex(es) Right atrial enlargement RSR' in V1 or V2, probably normal variant Electronically Signed On 02-09-2019 20:37:21 EDT by Hamlet Amaya
[2019-02-10] MEDS ORDERED: *HR* Enoxaparin 40 MG/0.4 ML SYRINGE SQ SCH (06:00)
[2019-02-10] MEDS: 0.9 % Sodium Chloride 1,000 ML IVC SCH (06:24)
[2019-02-10 07:44] LABS: Basophils % 0.5 %; Eosinophils # 0.1 K/mcL (0.0-0.6); Eosinophils % 1.3 %; Hematocrit 34.7 % (35.3-44.9); Hemoglobin 10.7 g/dL (11.5-15.4); Immature Granulocytes % 0.3 % (0-4); Lymphocytes # 2.9 K/mcL (0.6-4.6); Lymphocytes % 38.7 %; Mean Corpuscular HGB Conc 30.8 g/dL (31.6-35.5); Mean Corpuscular Hemoglobin 27.3 pg (28.0-33.3); Mean Corpuscular Volume 88.5 fL (83.0-100.0); Mean Platelet Volume 8.7 fL (9.4-12.4); Monocytes # 0.6 K/mcL (0.0-1.3); Monocytes % 7.7 %; Neutrophils # 3.9 K/mcL (1.6-8.9); Platelet Count 410 K/mcL (140-400); Red Blood Count 3.92 M/mcL (3.82-4.97); Red Cell Distribution Width 13.7 % (11.5-14.5); Segmented Neutrophils % 51.5 %
[2019-02-10 08:12] LABS: BUN/Creatinine Ratio 17 (6-26); Blood Urea Nitrogen 11 mg/dL (6-20); Calcium 8.7 mg/dL (8.6-10.3); Carbon Dioxide 26 mEq/L (23-29); Chloride 108 mEq/L (98-107); Glucose 93 mg/dL (70-105); Osmolality,Calculated 295 (280-300); Potassium 3.4 mEq/L (3.5-5.1); Sodium 143 mEq/L (136-145); eGFR For Non-African Americans > 60 (> 60)
[2019-02-10 11:57] VITALS: BP 92/72
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
[2019-02-10 13:46] LABS: Albumin 3.2 g/dL (3.5-5.7); Albumin/Globulin Ratio 1.3 (1.1-2.2); Bilirubin,Direct 0.1 mg/dL (0.0-0.2); Bilirubin,Indirect 0.1 mg/dL (0.0-1.2); Bilirubin,Total 0.2 mg/dL (0.3-1.0); Globulin 2.4 g/dL (2.4-3.5); Total Protein 5.6 g/dL (6.4-8.9)
== END 2019-02-10 15:18 | disposition home or self-care (01) ==
LOC: 2NNU 11:24 → EMEROOARM 11:24 → 2NNU 16:02
PROVIDERS: ADMIT Internal Medicine Nephrology; ATTEND Internal Medicine Nephrology